=== PATIENT | female | born 1995 | race Caucasian/White ===

== ENCOUNTER 2018-12-08 09:39 | Emergency (ER) | payer OTHER ==
[2018-12-08 10:11] LABS: #Basophils 0.1 thou/uL (0.0-0.2); #Eosinphils 0.1 thou/uL (0.0-0.7); #Lymphocytes 3.9 thou/uL (1.20-3.40); #Monocytes 0.6 thou/uL (0.11-0.59); #Neutrophils 4.9 thou/uL (1.40-6.50); %Eosinophils 1.2 % (0.0-10.0); %Lymphocytes 40.5 % (21.0-51.0); %Monocytes 6.5 % (0.0-10.0); %Neutrophils 50.7 % (42.0-75.0); Hemoglobin 13.9 g/dL (12.0-16.0); Mean Corpuscular HGB CONC 33.8 g/dL (32.0-36.0); Mean Corpuscular Hemoglobin 31.7 pg (27.0-31.0); Mean Corpuscular Volume 93.8 fL (78.0-98.0); Mean Platelet Volume 6.9 fL (7.4-10.4); Platelet Count 380 thou/uL (130-400); RBC Distribution Width 11.8 % (11.5-14.5); White Blood Cell (WBC) Count 9.7 thou/uL (4.8-10.8)
[2018-12-08 10:34] LABS: ALT (SGPT) 14 U/L (8-55); AST (SGOT) 18 U/L (5-34); Albumin 5.1 g/dL (3.5-5.0); Alkaline Phosphatase 49 U/L (40-150); Anion Gap 15 mmol/L (10-20); BUN (Urea Nitrogen) 13 mg/dL (7.0-18.7); Bilirubin, Total 0.2 mg/dL (0.2-1.2); Calc. Creatinine Clearance 0 mL/min (70-130); Calcium 10.5 mg/dL (7.8-10.44); Carbon Dioxide 26 mmol/L (22-29); Chloride 104 mmol/L (98-107); Estimated GFR-MDRD Greater than 90; Globulin 3.5 g/dL (2.4-3.5); Glucose 96 mg/dL (70-105); Potassium 3.7 mmol/L (3.5-5.1); Protein, Total 8.6 g/dL (6.0-8.3); Sodium 141 mmol/L (136-145)
[2018-12-08] MEDS ORDERED: Morphine 4 MG/ML VIAL ONE (10:40)
[2018-12-08] MEDS ORDERED: Ondansetron ODT 4 MG TAB ONE (10:40)
[2018-12-08] MEDS ORDERED: Adacel (T-DAP) 0.5 ML SYRINGE ONE (10:40)
== END 2018-12-08 12:07 | disposition home or self-care (01) ==
LOC: ERS 09:39
DX: T23.052A Burn of unspecified degree of left palm, initial encounter (principal); T23.042A Burn of unspecified degree of multiple left fingers (nail), including thumb, initial encounter; F17.210 Nicotine dependence, cigarettes, uncomplicated
CPT/HCPCS: 80053; 85025; 90471; 90715; 96372; J2270; Q0162

== ENCOUNTER 2019-02-18 15:10 | Emergency (ER) | payer OTHER ==
[2019-02-18] MEDS ORDERED: Metoclopramide HCl 10 MG/2 ML VIAL ONE (16:40)
[2019-02-18] MEDS ORDERED: Ketorolac Tromethamine 30 MG/ML VIAL ONE (16:40)
[2019-02-18] MEDS ORDERED: diphenhydrAMINE 50 MG/ML VIAL ONE (16:40)
== END 2019-02-18 18:47 | disposition home or self-care (01) ==
LOC: ERS 15:10
DX: G43.909 Migraine, unspecified, not intractable, without status migrainosus (principal); F32.9 Major depressive disorder, single episode, unspecified; F17.210 Nicotine dependence, cigarettes, uncomplicated
CPT/HCPCS: 96365; 96366; 96375; J1200; J1885; J2765